=== PATIENT | female | born 1950 | race Caucasian/White ===

== ENCOUNTER 2020-01-31 09:05 | Inpatient (IN) ==
[2020-01-31] MEDS ORDERED: ASPIRIN CHEW 324 MG PO STA (09:36)
[2020-01-31] MEDS ORDERED: NITROGLYCERIN SL 0.4 MG/TAB TAB SL PRN (09:36)
--- NOTE | 2020-01-31 09:40 | Emergency Department Note ---
Impression & Plan Bilateral pulmonary embolism, Elevated troponin, Chest pain ED Provider Note NAME: GODWIN DOVE AGE: 69 SEX: F : 1950 ARRIVES VIA: Walk-In INFORMANT: Patient ED PROVIDER(S): Andreas Louise DO CHIEF COMPLAINT: Chest pain and shortness of breath HPI: Patient is a 69-year-old female who presents to the ER for shortness of breath with exertion which started over the past 24 hours. Is also associated with mild dull right-sided/midsternal chest pressure. No arm or jaw pain. She admits to clamminess. No nausea or vomiting. No dysuria urgency or frequency. Admits to smoking previously and now just vapes. She has a history of hyperlipidemia. She has had an unchanged dry cough for the past 3 weeks. No loss of taste or smell. No runny nose or sore throat. No exposure to anyone with Covid. No other exacerbating or remitting factors. Shortness of breath is not worse with lying flat. ROS: See above HPI for pertinent positives & negatives. A total of 10 systems reviewed and were otherwise negative. PAST MEDICAL HISTORY:See Below PAST SURGICAL HISTORY:See Below FAMILY HISTORY:See Below SOCIAL HISTORY:See Below HOME MEDICATIONS:See Below ALLERGIES:See Below VITALS:See Below PHYSICAL EXAMINATION: GENERAL: Sitting up in bed, alert, well appearing, well nourished, no distress, non-toxic EYE EXAM: normal conjunctiva. OROPHARYNX: no exudate, no erythema, lips, buccal mucosa, and tongue normal and mucous membranes are moist NECK: supple, no nuchal rigidity, no adenopathy, non-tender LUNGS: Clear to auscultation. Normal chest wall mechanics HEART: no murmurs, S1 normal and S2 normal ABDOMEN: abdomen soft, non-tender, normo-active bowel sounds, no masses, no rebound or guarding. BACK: Back is symmetrical on inspection and there is no deformity, no midline tenderness, no CVA tenderness. SKIN: no rashes and no bruising UPPER EXTREMITIES: upper extremities are grossly normal. LOWER EXTREMITIES: No pitting edema. Calves are equal bilateral NEURO EXAM: Normal sensorium, cranial nerves II-XII grossly intact, normal speech, no gross weakness of arms, no gross weakness of legs. MEDICAL DECISION MAKING: Patient is a 69-year-old female who presents the ER for dull chest pain and shortness of breath which has been present for the past 24 hours. IV was established blood work was obtained. Labs show a mild leukocytosis 11,000. No significant anemia. INR was unremarkable. D-dimer was was elevated at 9000. BMP with a slightly elevated chloride. LFTs bilirubin was unremarkable. Lipase was normal. Covid was negative. Chest x-ray was unremarkable. EKG did not show ischemic changes. CT angio of the chest after discussion with Dr. Crisostomo from cardiology showed extensive bilateral PEs which I do favor is the cause of the elevated troponin and D-dimer combination with EKG changes. She was placed on heparin drip and bolus. She had no bleeding risk factors which were discussed beforehand. Triage Nursing notes reviewed. Prior medical records reviewed Vital Signs: reviewed and remarkable for tachycardic Differential diagnosis: Differential diagnoses includes but is not limited to acute coronary syndrome, myocardial infarction, pericarditis, pulmonary embolus, aortic dissection, pneumonia, pneumothorax, musculoskeletal, shingles, esophageal. ER treatment provided: See below Diagnostics interpreted by me: ECG: Sinus rhythm rate of 97 T wave inversion in the inferior leads ST depressions in the inferior leads with nonspecific ST wave changes in the lateral leads QTC 444 EKG #2 Sinus rhythm rate of 91 Normal axis T wave inversion in the inferior leads T WI in V3 QTC 428 EKG #3 Sinus tachycardia rate of 100 T wave inversion in the inferior leads ST wave changes in the inferior leads T WI in V3 Nonspecific ST wave changes in the lateral leads Cardiac Monitoring: An order was placed for continuous cardiac monitoring. The monitor shows a rate of 98 with sinus rhythm. Laboratory studies: As stated above and show below. Imaging studies: CT of the chest shows extensive bilateral PEs Consultation(s): Discussed the hospitalist for further evaluation ED COURSE: Procedures: none Critical Care: I have personally spent 45 minutes of critical care time in the direct management of this patient. This includes bedside care, interpretation of diagnostic studies, and testing, discussion with consultants, patient, and family members, and other required patient management activities. This 45 minutes is in excess of all separately billable procedures. Past Med/Surg History Medical History (Updated 01/31/20 @ 16:07 by Andreas Louise DO) Anxiety CKD (chronic kidney disease) stage 3, GFR 30-59 ml/min HLD (hyperlipidemia) Surgical History (Updated 01/31/20 @ 12:43 by Mara Arevalo PA-C) History of colonoscopy History of tympanoplasty of left ear Family History (Updated 01/31/20 @ 12:44 by Mara Arevalo PA-C) Father Deep vein thrombosis Sister Deep vein thrombosis Mother Hypertension Social History (Updated 01/31/20 @ 14:18 by Mara Arevalo PA-C) Smoking Status: Former smoker Tobacco Type: E-cigarettes / Vaping packs per day: 0.5; Years Smoked: 30; Smoking End Date: 03/16/2013; Second Hand Exposure: No; Do You Dip or Chew Tobacco: No; Tobacco Cessation Education Requested by Patient: No Hx Alcohol Use: Yes Alcohol type: wine Alcohol type Comment: daily champagne. One glass. 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 Beliefs That Will Affect Care: None marital status: Current Living Situation: Spouse Other Information That Helps Us Care for You: No Feels Safe at Home: Yes Safety Concerns: Feels Safe At This Time Assistive Devices: None Allergies Allergies Allergy/AdvReac Type Severity Reaction Status Date / Time lidocaine AdvReac Severe Redness Unverified 01/31/20 11:48 and swelling of face Home Meds Home Medications Medication Instructions Recorded Confirmed Cbd Oil 50mg/Ml 50 mg SUBLINGUAL HS 01/31/20 01/31/20 s-adenosylmethionine [Fabricio-E] 400 mg PO HS 01/31/20 01/31/20 Results & Data (ED) Vital Signs Vital Signs - 24 hr 01/31/20 09:10 01/31/20 09:50 01/31/20 09:52 Pulse Rate 109 H 94 H 94 H Pulse Rate [Right Finger] Pulse Rate from SpO2 Sensor 95 H Respiratory Rate 20 11 L Respiratory Effort / Characteristics Short of Breath SOB on Exertion Respiratory Depth Blood Pressure 116/74 146/81 H Blood Pressure [Left Arm] Blood Pressure Mean 88 96 Blood Pressure Mean [Left Arm] Blood Pressure Position Sitting Pulse Oximetry 94 93 93 Oxygen Delivery Method Room Air Room Air Sepsis Recent Fever Within 48 Hours No Sepsis New/Unexplained Change in Mental Status No Sepsis Action Taken by Nursing No Action Required 01/31/20 09:58 01/31/20 10:00 01/31/20 10:16 Pulse Rate 103 H 97 H 92 H Pulse Rate [Right Finger] Pulse Rate from SpO2 Sensor 103 H 92 H Respiratory Rate 25 H 22 14 Respiratory Effort / Characteristics Respiratory Depth Blood Pressure 138/90 Blood Pressure [Left Arm] Blood Pressure Mean 112 Blood Pressure Mean [Left Arm] Blood Pressure Position Pulse Oximetry 93 94 Oxygen Delivery Method Sepsis Recent Fever Within 48 Hours Sepsis New/Unexplained Change in Mental Status Sepsis Action Taken by Nursing 01/31/20 10:17 01/31/20 10:23 01/31/20 10:25 Pulse Rate 99 H 95 H Pulse Rate [Right Finger] 90 93 H Pulse Rate from SpO2 Sensor 98 H 96 H Respiratory Rate 20 17 9 L Respiratory Effort / Characteristics Non-Labored Non-Labored Respiratory Depth Normal Normal Blood Pressure 102/92 108/83 Blood Pressure [Left Arm] 138/90 102/92 Blood Pressure Mean 96 97 Blood Pressure Mean [Left Arm] 106 95 Blood Pressure Position Pulse Oximetry 16 L 95 94 Oxygen Delivery Method Room Air Room Air Sepsis Recent Fever Within 48 Hours Sepsis New/Unexplained Change in Mental Status Sepsis Action Taken by Nursing 01/31/20 10:26 01/31/20 10:28 01/31/20 10:30 Pulse Rate 94 H 98 H Pulse Rate [Right Finger] 96 H Pulse Rate from SpO2 Sensor 94 H 98 H Respiratory Rate 10 L 12 16 Respiratory Effort / Characteristics Non-Labored Respiratory Depth Normal Blood Pressure 104/77 Blood Pressure [Left Arm] 108/83 Blood Pressure Mean 87 Blood Pressure Mean [Left Arm] 91 Blood Pressure Position Pulse Oximetry 94 95 93 Oxygen Delivery Method Room Air Sepsis Recent Fever Within 48 Hours Sepsis New/Unexplained Change in Mental Status Sepsis Action Taken by Nursing 01/31/20 10:31 01/31/20 11:00 01/31/20 11:25 Pulse Rate 96 H 94 H Pulse Rate [Right Finger] Pulse Rate from SpO2 Sensor 98 H 94 H Respiratory Rate 19 21 Respiratory Effort / Characteristics Respiratory Depth Blood Pressure 98/62 L 125/85 Blood Pressure [Left Arm] Blood Pressure Mean 67 94 Blood Pressure Mean [Left Arm] Blood Pressure Position Pulse Oximetry 93 93 98 Oxygen Delivery Method Room Air Sepsis Recent Fever Within 48 Hours Sepsis New/Unexplained Change in Mental Status Sepsis Action Taken by Nursing 01/31/20 11:32 01/31/20 12:02 01/31/20 12:03 Pulse Rate 106 H 100 H 103 H Pulse Rate [Right Finger] Pulse Rate from SpO2 Sensor 99 H 103 H Respiratory Rate 22 24 25 H Respiratory Effort / Characteristics Respiratory Depth Blood Pressure 157/92 H Blood Pressure [Left Arm] Blood Pressure Mean 133 Blood Pressure Mean [Left Arm] Blood Pressure Position Pulse Oximetry 94 93 Oxygen Delivery Method Sepsis Recent Fever Within 48 Hours Sepsis New/Unexplained Change in Mental Status Sepsis Action Taken by Nursing 01/31/20 12:30 Pulse Rate 92 H Pulse Rate [Right Finger] Pulse Rate from SpO2 Sensor 92 H Respiratory Rate 16 Respiratory Effort / Characteristics Respiratory Depth Blood Pressure 158/97 H Blood Pressure [Left Arm] Blood Pressure Mean 102 Blood Pressure Mean [Left Arm] Blood Pressure Position Pulse Oximetry 93 Oxygen Delivery Method Sepsis Recent Fever Within 48 Hours Sepsis New/Unexplained Change in Mental Status Sepsis Action Taken by Nursing Laboratory Data Result diagrams: 01/31/20 10:12 01/31/20 10:12 Lab Results 01/31/20 01/31/20 01/31/20 Range/Units 10:12 10:12 10:12 WBC 11.51 H (4.8-10.8) K/uL RBC 4.82 (4.2-5.4) M/uL Hgb 14.7 (12.0-16.0) g/dL Hct 44.4 (37-47) % MCV 92.1 (80-100) fL MCH 30.5 (25-34) pg MCHC 33.1 (32-36) g/dL RDW Std Deviation 43.6 (36.4-46.3) fL RDW Coeff of Stefanie 13.0 (11.5-14.5) % Plt Count 246 (130-400) K/uL MPV 10.0 (7.4-10.4) fL Immature Gran % (Auto) 0.3 % Neut % (Auto) 74.7 % Lymph % (Auto) 16.3 % Baca % (Auto) 7.4 % Eos % (Auto) 1.0 % Baso % (Auto) 0.3 % Neut # (Auto) 8.61 H (1.4-6.5) K/uL Lymph # (Auto) 1.88 (1.2-3.4) K/uL [place] # (Auto) 0.85 H (0.11-0.59) K/uL Eos # (Auto) 0.11 (0-0.5) K/uL Baso # (Auto) 0.03 (0-0.2) K/uL Immature Gran # (Auto) 0.03 H (0.00-0.02) K/uL PT 10.8 (9.0-12.0) Seconds INR 1.0 (0.9-1.1) APTT 26.5 (21.0-31.0) Seconds PTT Ratio 0.9 D-Dimer 9210 H* (0-500) ug/L FEU Sodium 140 (136-145) mmol/L Potassium 3.9 (3.5-5.1) mmol/L Chloride 109 H (98-107) mmol/L Carbon Dioxide 23 (21-32) mmol/L Anion Gap 7.0 (3-11) BUN 15 (7-18) mg/dl Creatinine 1.18 (0.6-1.2) mg/dl Est Cr Clr Drug Dosing 43.0 ml/min Est GFR ( Amer) 53.7 Est GFR (Non-Af Amer) 46.4 BUN/Creatinine Ratio 13.1 (10-20) Glucose 97 (70-99) mg/dl Calcium 9.1 (8.5-10.1) mg/dl Total Bilirubin 0.6 (0.2-1) mg/dl AST 18 (15-37) U/L ALT 27 (12-78) U/L Alkaline Phosphatase 75 (45-117) U/L Troponin I 0.446 H* (0-0.045) ng/ml Total Protein 8.1 (6.4-8.2) gm/dl Albumin 3.8 (3.4-5.0) gm/dl Globulin 4.3 H (2.5-4.0) gm/dl Albumin/Globulin Ratio 0.9 (0.9-2) Lipase 139 (73-393) U/L COVID-19 Eval Order 01/31/20 Range/Units 11:30 WBC (4.8-10.8) K/uL RBC (4.2-5.4) M/uL Hgb (12.0-16.0) g/dL Hct (37-47) % MCV (80-100) fL MCH (25-34) pg MCHC (32-36) g/dL RDW Std Deviation (36.4-46.3) fL RDW Coeff of Stefanie (11.5-14.5) % Plt Count (130-400) K/uL MPV (7.4-10.4) fL Immature Gran % (Auto) % Neut % (Auto) % Lymph % (Auto) % Baca % (Auto) % Eos % (Auto) % Baso % (Auto) % Neut # (Auto) (1.4-6.5) K/uL Lymph # (Auto) (1.2-3.4) K/uL [place] # (Auto) (0.11-0.59) K/uL Eos # (Auto) (0-0.5) K/uL Baso # (Auto) (0-0.2) K/uL Immature Gran # (Auto) (0.00-0.02) K/uL PT (9.0-12.0) Seconds INR (0.9-1.1) APTT (21.0-31.0) Seconds PTT Ratio D-Dimer (0-500) ug/L FEU Sodium (136-145) mmol/L Potassium (3.5-5.1) mmol/L Chloride (98-107) mmol/L Carbon Dioxide (21-32) mmol/L Anion Gap (3-11) BUN (7-18) mg/dl Creatinine (0.6-1.2) mg/dl Est Cr Clr Drug Dosing ml/min Est GFR ( Amer) Est GFR (Non-Af Amer) BUN/Creatinine Ratio (10-20) Glucose (70-99) mg/dl Calcium (8.5-10.1) mg/dl Total Bilirubin (0.2-1) mg/dl AST (15-37) U/L ALT (12-78) U/L Alkaline Phosphatase (45-117) U/L Troponin I (0-0.045) ng/ml Total Protein (6.4-8.2) gm/dl Albumin (3.4-5.0) gm/dl Globulin (2.5-4.0) gm/dl Albumin/Globulin Ratio (0.9-2) Lipase (73-393) U/L COVID-19 Eval Order Dup asRespPanOrdered Administered Medications Heparin Sodium/Dextrose (Heparin Sodium/Dextrose) 25,000 units in 500 mls @ 22 mls/hr IV .[id number] NOREEN; Protocol Stop: 03/01/20 12:29 Last Admin: 01/31/20 14:38 Dose: 1,100 units/hr, 22 mls/hr Documented by: [id number] Cosigned by: [id number] Discontinued Medications Aspirin (Aspirin Chew 324 Mg) 324 mg PO NOW STA Stop: 01/31/20 09:37 Last Admin: 01/31/20 10:19 Dose: 324 mg Documented by: [id number] Heparin Sodium (Porcine) (Heparin Sod (Porcine) 1000 Unit/Ml 10 Ml Vial) Confirm Administered Dose 10,000 units .ROUTE .STK-MED ONE Stop: 01/31/20 13:36 Last Admin: 01/31/20 14:39 Dose: 5,000 units Documented by: [id number] Cosigned by: [id number] Heparin Sodium/Dextrose (Heparin Iv Standard With Bolus) 1 ea IV NOW STA; Protocol Stop: 01/31/20 12:23 Last Admin: 01/31/20 14:39 Dose: 1 ea Documented by: [id number] Ioversol (Optiray 320 125ml) 119 ml IV ONCE ONE Stop: 01/31/20 11:59 Last Admin: 01/31/20 11:58 Dose: 119 ml Documented by: [id number] Nitroglycerin (Nitroglycerin Sl 0.4 Mg/Tab Tab) 0.4 mg SL PRN PRN PRN Reason: Allergic Symptoms Stop: 03/01/20 09:35 Last Admin: 01/31/20 10:20 Dose: 0.4 mg Documented by: [id number] Discharge Plan Visit Data Chief Complaint: Cardiac Assessment Stated Complaint: DIFFICULTY BREATHING, MILD CHEST DISCOMFORT ED Provider: Andreas Louise Discharge Problem: Bilateral pulmonary embolism, Elevated troponin, Chest pain Patient Disposition: Admitted As Inpatient Discharge Instructions Interventions: ED Discharge Assessment Last Done: 01/31/20 15:00 Discharge Problem: Chest pain Qualifiers: Chest pain type: unspecified Qualified Code(s): R07.9 - Chest pain, unspecified
--- NOTE | 2020-01-31 09:56 | XRay Report ---
SINGLE VIEW CHEST CLINICAL HISTORY: Atypical chest pain. FINDINGS: An AP, portable, upright chest radiograph is obtained. No prior studies are available for c omparison at the time of dictation. The examination is degraded by portable technique and apical lord otic positioning. The heart is top normal for projection noting atherosclerotic calcification of the thoracic aorta. The pulmonary vasculature is noncongested. The lungs and pleural spaces are clear. No pneumothorax is seen. The skeletal structures are osteopenic. The bony thorax is grossly intact. Art hritic change is noted in the right shoulder. IMPRESSION: No active disease in the chest. ACT 112: Negative or not required by law. Electronically signed by: Eliseo Sifuentes M.D. 01/31/2020 9:54 AM
[2020-01-31 10:31] LABS: Basophils # (auto) 0.03 K/uL (0-0.2); Basophils % (auto) 0.3 %; Eosinophils # (auto) 0.11 K/uL (0-0.5); Hematocrit (blood only) 44.4 % (37-47); Hemoglobin 14.7 g/dL (12.0-16.0); Immature Granulocytes # (auto) 0.03 K/uL (0.00-0.02); Immature Granulocytes % (auto) 0.3 %; Lymphocytes # (auto) 1.88 K/uL (1.2-3.4); Lymphocytes % (auto) 16.3 %; Mean Corpuscular Hemoglobin 30.5 pg (25-34); Mean Corpuscular Hgb Conc 33.1 g/dL (32-36); Mean Corpuscular Volume 92.1 fL (80-100); Monocytes # (auto) 0.85 K/uL (0.11-0.59); Monocytes % (auto) 7.4 %; Neutrophils # (auto) 8.61 K/uL (1.4-6.5); Neutrophils % (auto) 74.7 %; Platelet Count 246 K/uL (130-400); RDW Standard Deviation 43.6 fL (36.4-46.3); Red Blood Count 4.82 M/uL (4.2-5.4); White Blood Count 11.51 K/uL (4.8-10.8)
[2020-01-31 10:47] LABS: Albumin Level 3.8 gm/dl (3.4-5.0); BUN Creatinine Ratio 13.1 (10-20); Calcium 9.1 mg/dl (8.5-10.1); Est GFR (African American) 53.7; Est GFR (Non-African American) 46.4; Potassium 3.9 mmol/L (3.5-5.1)
[2020-01-31 10:58] LABS: Partial Thromboplastin Ratio 0.9; Partial Thromboplastin Time 26.5 Seconds (21.0-31.0); Prothrombin Time 10.8 Seconds (9.0-12.0)
[2020-01-31 11:01] LABS: Albumin Globulin Ratio 0.9 (0.9-2); Bilirubin,Total 0.6 mg/dl (0.2-1); Globulin 4.3 gm/dl (2.5-4.0); Total Protein 8.1 gm/dl (6.4-8.2); Troponin I 0.446 ng/ml (0-0.045)
[2020-01-31 11:07] LABS: D Dimer 9210 ug/L FEU (0-500)
[2020-01-31] MEDS ORDERED: Heparin IV Low Dose WITH Bolus IV STA (11:24)
[2020-01-31] MEDS ORDERED: HEPARIN SODIUM/DEXTROSE 25,000 UNITS/500 ML BAG IV SCH (11:30)
[2020-01-31] MEDS ORDERED: OPTIRAY 320 125ml IV ONE (11:58)
--- NOTE | 2020-01-31 12:12 | CT Scan Report ---
CT ANGIOGRAM OF THE CHEST CLINICAL HISTORY: Dyspnea. Atypical chest pain. Elevated d-dimer. COMPARISON STUDY: Chest x-ray dated 01/31/2020. TECHNIQUE: Following the IV administration of 119 cc of Optiray 320, CT angiogram of the chest was pe rformed from the upper abdomen to the thoracic inlet utilizing the pulmonary embolus protocol. Images are reviewed in the axial, sagittal, and coronal planes. 3-D MIPS images are created and assessed. I V contrast was administered without complication. A dose lowering technique was utilized adhering to the principles of ALARA. CT DOSE: 420.40 mGycm FINDINGS: Thyroid: Imaged portions of the thyroid gland are normal in size and attenuation. Thoracic aorta: The thoracic aorta is normal in caliber and demonstrates standard 3-vessel arch anato my. No dissection is seen. Pulmonary vasculature: The pulmonary trunk is normal in caliber. There is pulmonary embolus within th e right lower lobe pulmonary artery. This extends peripherally into segmental and subsegmental branch es. Segmental and subsegmental pulmonary emboli are also seen within branches of the right upper and right lower lobe pulmonary arteries. There is thrombus within the distal left main pulmonary artery. This extends into the left upper and left lower lobar pulmonary arteries involving segmental and subs egmental branches. Heart: The heart is mildly enlarged and without pericardial effusion. Lungs and pleural spaces: There is no airspace consolidation or pleural effusion. Atelectasis is note d at the lung bases. The trachea and central airways are clear. Mild diffuse peribronchial thickening is observed. Mediastinum: There is no mediastinal lymphadenopathy. Lucita: Clear. Axillae: There is no axillary lymphadenopathy. Upper abdomen: There is a small hiatal hernia. An 11 mm complex/hyperdense cyst arises from the upper pole of left kidney. Skeletal structures: The skeletal structures are osteopenic. No lytic or blastic bony lesions are see n. IMPRESSION: 1. Fairly extensive bilateral pulmonary emboli as above. 2. Mild cardiac enlargement. 3. There is no airspace consolidation or pleural effusion. 4. Mild diffuse peribronchial thickening suggests bronchitis/reactive airway disease. Clinical correl ation will be required. ACT 112: Negative or not required by law. Electronically signed by: Eliseo Sifuentes M.D. 01/31/2020 12:10 PM
--- NOTE | 2020-01-31 12:51 | History & Physical Report ---
Date of Service January 31, 2020 Assessment & Plan (1) Bilateral pulmonary embolism: (2) Elevated troponin: This is a 69-year-old female who has significant past medical history of anxiety, hyperlipidemia, CKD stage III, family history of venous thromboembolism who presents to ED secondary to worsening shortness of breath x24 hours. CTA revealed fairly extensive bilateral pulmonary emboli. Elevated troponin at 0.446. Currently she is not hypoxic. IV heparin bolus/gtt initiated in ED. admit to PCU continue IV heparin obtain echocardiogram eval for R heart strain b/l venous duplex hypercoag panel, + FH of factor 5 deficiency cycle troponins consult cardiology -discussed with Dr. Edmondson and will initiate metoprolol 12.5 mg twice daily for A. fib prophylaxis (3) CKD (chronic kidney disease) stage 3, GFR 30-59 ml/min: baseline cr 1.1 bun/cr stable 15/1.18 monitor (4) HLD (hyperlipidemia): diet controlled has had elevated total cholesterol and LDL for several years, never on statin given elevated trop, obtain fasting lipid panel DVT ppx: IV heparin Disposition: admit to tele Follow up: PCP Dr. Orta upon discharge Pt was seen and examined in collaboration with Dr. Huitron, please see addendum FULL CODE History of Present Illness Chief Complaint: Worsening shortness of breath x24 hours. Primary Care Provider: Toyin Orta, This is a 69-year-old female who has significant past medical history of anxiety, hyperlipidemia, CKD stage III, family history of venous thromboembolism who presents to ED secondary to worsening shortness of breath x24 hours. Shortness of breath is associated with midsternal and right-sided chest pain. Pain is described as dull, no radiation to arm or jaw, slightly worse with deep breathing, nothing makes better, denies orthopnea or PND, has never experienced in the past. Further complains of dry cough for approximately 3 weeks. Admits to increased fatigue. When she does limited activity she gets SOB. Yesterday with ambulation she felt lightheaded like she could pass out, but resolved with rest. She denies f/c/s, sob at rest, n/v/d, change in bowel or urinary habits. She denies hemoptysis or wheezing. Father and numerous relatives + factor 5 leiden deficiency. She never got tested because she was asymptomatic. If she becamse symptomatic she would get tested. No prior hx of DVT. Former smoker. She does currently vape, but nicotine free. Denies hormone replacement therapy and no recent surgery. No current malignancy. In ED patient made hemodynamically stable. She was saturating well on room air. Lab work notable for leukocytosis 11.51k, H&H 14.7 and 44.4, platelet 246, BUN 15, creatinine 1.18, GFR 46.4, D-dimer 9210, troponin 0.446. Chest x-ray negative for acute cardiopulmonary abnormality. Chest CTA: Fairly extensive bilateral pulmonary emboli, mild cardiac enlargement. No airspace consolidation or pleural effusion. Mild diffuse peribronchial thickening suggesting a bronchitis reactive airway disease. She was started on IV heparin bolus and drip. Allergies Allergy/AdvReac Type Severity Reaction Status Date / Time lidocaine AdvReac Severe Redness Unverified 01/31/20 11:48 and swelling of face Home Medications Medication Instructions Recorded Confirmed Type Cbd Oil 50mg/Ml 50 mg SUBLINGUAL HS 01/31/20 01/31/20 History s-adenosylmethionine [Fabricio-E] 400 mg PO HS 01/31/20 01/31/20 History Past Med/Surg History Medical History Anxiety CKD (chronic kidney disease) stage 3, GFR 30-59 ml/min HLD (hyperlipidemia) Surgical History History of colonoscopy History of tympanoplasty of left ear Family History Father Deep vein thrombosis Sister Deep vein thrombosis Mother Hypertension Social History Smoking Status: Former smoker Tobacco Type: E-cigarettes / Vaping packs per day: 0.5; Years Smoked: 30; Smoking End Date: 03/16/2013; Second Hand Exposure: No; Do You Dip or Chew Tobacco: No; Tobacco Cessation Education Requested by Patient: No Hx Alcohol Use: Yes Alcohol type: wine Alcohol type Comment: daily champagne. One glass. Hx Substance Use: No Preferred Language: Canadian Guest Experience Specialist Required: No Beliefs That Will Affect Care: None marital status: Current Living Situation: Spouse Other Information That Helps Us Care for You: No Feels Safe at Home: Yes Safety Concerns: Feels Safe At This Time Assistive Devices: None Review of Systems Review of Systems: All systems reviewed & are unremarkable except as noted in HPI & below Physical Exam Physical Exam: Constitutional: WD/WN, vitals as above, NAD, sitting up in bed, pleasant, conversing easily Head: Normocephalic, Atraumatic Eyes: PERRL, conjunctivae normal, anicteric sclerae ENMT: external ear and nose normal, oropharynx normal Neck: trachea midline, no thyromegaly normal visual inspection Respiratory: normal respiratory effort, lungs clear to auscultation, no wheeze, rales, rhonchi. Normal insp/exp effort, no accessory muscle use Cardiovascular: RRR, no murmur, no edema Vessels: no JVD or carotid bruit Chest: normal inspection of chest Abdomen: normal bowel sounds, soft, nontender, no hepatosplenomegaly Musculoskeletal: no cyanosis or clubbing, extremities motor strength 5/5 Skin: no rashes, warm and dry normal turgor Neurologic: PERRL, EOMI, accommodation nl, no face palsy, no dysarthria CN's II-XI intact bilaterally and moves all extremities Psychiatric: A+Ox3, euthymic affect Lymphatic: no cervical or axillary lymphadenopathy : deferred Results & Data Results & Data ([facility]) Vital Signs (Past 12 Hours) Vital Signs Pulse Pulse Resp BP BP Pulse Ox 01/31/20 11:25 98 01/31/20 10:26 96 H 10 L 108/83 94 01/31/20 10:23 93 H 10 L 102/92 95 01/31/20 10:17 90 20 138/90 16 L 01/31/20 09:50 94 H 93 01/31/20 09:10 109 H 20 116/74 94 Laboratory Results Short CBC 01/31/20 Range/Units 10:12 WBC 11.51 H (4.8-10.8) K/uL Hgb 14.7 (12.0-16.0) g/dL Hct 44.4 (37-47) % Plt Count 246 (130-400) K/uL BMP 01/31/20 10:12 Sodium 140 Potassium 3.9 Chloride 109 H Carbon Dioxide 23 BUN 15 Creatinine 1.18 Glucose 97 Calcium 9.1 Cardiac Enzymes 01/31/20 Range/Units 10:12 Troponin I 0.446 H* (0-0.045) ng/ml Liver Function 01/31/20 Range/Units 10:12 Total Bilirubin 0.6 (0.2-1) mg/dl AST 18 (15-37) U/L ALT 27 (12-78) U/L Alkaline Phosphatase 75 (45-117) U/L Albumin 3.8 (3.4-5.0) gm/dl Diagnostic Findings Chest CTA: IMPRESSION: 1. Fairly extensive bilateral pulmonary emboli as above. 2. Mild cardiac enlargement. 3. There is no airspace consolidation or pleural effusion. 4. Mild diffuse peribronchial thickening suggests bronchitis/reactive airway disease. Clinical correlation will be required. CXR: IMPRESSION: No active disease in the chest. Medications Administered Nitroglycerin (Nitroglycerin Sl 0.4 Mg/Tab Tab) 0.4 mg SL PRN PRN PRN Reason: Allergic Symptoms Stop: 03/01/20 09:35 Last Admin: 01/31/20 10:20 Dose: 0.4 mg Documented by: [id number] Discontinued Medications Aspirin (Aspirin Chew 324 Mg) 324 mg PO NOW STA Stop: 01/31/20 09:37 Last Admin: 01/31/20 10:19 Dose: 324 mg Documented by: [id number] Ioversol (Optiray 320 125ml) 119 ml IV ONCE ONE Stop: 01/31/20 11:59 Last Admin: 01/31/20 11:58 Dose: 119 ml Documented by: [id number] ECG Rate (beats per minute): 100 Rhythm: sinus tachycardia Findings: + RBBB Additional Comments: possible left atrial enlargement Code Status & VTE Plan Code Status Full Code VTE Prophylaxis Plan Reason for no VTE drug order: Contraindicated Reason for no VTE mechanical prophylaxis: Treatment not indicated Supervising Physician Co-Signing Physician Notes Attending addendum: pt seen and examined , care co-ordinated with Mara BURNS this is a 69 yo F admitted with exertional sob for past few day no cough , no fever or chills CTA of chest shows : bilateral extensive PE pt started on IV heparin wt based protocol family hx of hyperocagulable status : Factor V Leiden no personal hx of DVT/PE in past no recent travel , no recent hip or knee surgery pt is fairly active at baseline unprovoked extensive bilateral PE ordered labs for hypercoagulable work up Iv heparin wt based protocol can be transitioned to DOAC's ( pt has acceptable cr clearance ) ECHO ; shows evidence of pulm HTN with mild /moderate RV strain Elevation of troponin noted -due to cardiac strain with bilateral PE serial cardiac markers ordered pt denies of any chest pain , no SOB at rest monitor in tele please refer to further documentation by Mara Arevalo PA-C for discussion of other chronic issues Samantha Huitron MD
[2020-01-31] MEDS ORDERED: HEPARIN SOD (PORCINE) 1000 UNIT/ML 10 ML VIAL ONE (13:35)
[2020-01-31] MEDS: HEPARIN SODIUM/DEXTROSE 25,000 UNITS/500 ML BAG IV SCH (14:38)
[2020-01-31] MEDS ORDERED: POLYETHYLENE (MIRALAX) 17 GM PACK PO PRN (15:35)
[2020-01-31] MEDS ORDERED: ONDANSETRON INJ 2 MG/ML 2 ML VIAL IV PRN (15:35)
[2020-01-31] MEDS ORDERED: ALUMINUM/MAGNESIUM SUSP 30 ML UDC PO PRN (15:35)
[2020-01-31] MEDS ORDERED: ACETAMINOPHEN 325 MG TAB PO PRN (15:35)
[2020-01-31] MEDS ORDERED: MAGNESIUM HYDROXIDE SUSP 30 ML UDC PO PRN (15:35)
--- NOTE | 2020-01-31 16:55 | Electrocardiogram Report ---
Test Reason : Blood Pressure : / mmHG Vent. Rate : 097 BPM Atrial Rate : 097 BPM P-R Int : 186 ms QRS Dur : 080 ms QT Int : 350 ms P-R-T Axes : 073 037 005 degrees QTc Int : 444 ms Normal sinus rhythm Nonspecific ST and T wave abnormality Abnormal ECG No previous ECGs available Confirmed by Juan Linton ([id number]) on 01/31/2020 4:55:05 PM Referred By: REFERRED SELF Confirmed By:Juan Linton
--- NOTE | 2020-01-31 16:58 | Electrocardiogram Report ---
Test Reason : Blood Pressure : / mmHG Vent. Rate : 091 BPM Atrial Rate : 091 BPM P-R Int : 162 ms QRS Dur : 080 ms QT Int : 348 ms P-R-T Axes : 068 027 013 degrees QTc Int : 428 ms Normal sinus rhythm Nonspecific T wave abnormality Abnormal ECG When compared with ECG of 31-JAN-2020 09:50, (unconfirmed) No significant change was found Confirmed by Juan Linton ([id number]) on 01/31/2020 4:58:36 PM Referred By: REFERRED SELF Confirmed By:Juan Linton
--- NOTE | 2020-01-31 16:59 | Electrocardiogram Report ---
Test Reason : Blood Pressure : / mmHG Vent. Rate : 100 BPM Atrial Rate : 100 BPM P-R Int : 200 ms QRS Dur : 080 ms QT Int : 344 ms P-R-T Axes : 065 046 004 degrees QTc Int : 443 ms Normal sinus rhythm Possible Left atrial enlargement Nonspecific ST and T wave abnormality Abnormal ECG When compared with ECG of 31-JAN-2020 11:23, (unconfirmed) No significant change was found Confirmed by Juan Linton ([id number]) on 01/31/2020 4:58:58 PM Referred By: REFERRED SELF Confirmed By:Juan Linton
--- NOTE | 2020-01-31 18:01 | Cardiology Consultation ---
Date of Consultation January 31, 2020 Assessment & Plan (1) Bilateral pulmonary embolism: (2) Elevated troponin: Patient and family history of venous thromboembolic event in her father, and history of Factor V Leiden mutation and a niece and 2 sisters presents with bilateral pulmonary embolism, with associated chest discomfort, mostly pleuritic right-sided chest discomfort, profound shortness of breath with exertion, and near syncope. Blood pressure is stable. Troponin I minimally elevated at 0.446 and 1.57 NG per mL, with follow-up echocardiogram revealing normal left ventricular wall motion and normal LVEF, and endings of mild right ventricular dilatation and mild right ventricular hypokinesis, with mild pulmonary hypertension. I think her troponin elevation is well explained by the CT findings, and echocardiogram findings, and is likely due to right ventricular strain in the absence of hypoxia or hypotension. Ongoing anticoagulation with heparin infusion is recommended. Given the significant thrombus burden, I would recommend that unfractioned heparin is the anticoagulant of choice at least initially. Will reassess the most ideal oral agent, perhaps Eliquis, as her hospital stay progresses. History of Present Illness Attending Physician: Samantha Huitron MD History of Present Illness Ting Donovan is a 69 year old female seen in cardiology consultation per the request of Panfilo Hodges PA-C and Dr Huitron for the evaluation of chest discomfort and elevated troponin I. Patient presented this morning with chest discomfort. Her initial EKG revealed no significant ST changes with exception of T wave inversion in lead III and V3. Troponin was minimally elevated. D-dimer was elevated.Dr Louise of the emergency department to contact me by pager this morning to discuss her case, and given the elevated D-dimer, I recommended proceeding with a CT angiogram of the chest. CT angiogram of the chest revealed pulmonary embolus within the right lower lobe pulmonary artery that extends peripherally into the segmental and subsegmental branches. Segmental and subsegmental pulmonary embolism also noted within the branches of the right upper and right lower pulmonary arteries. Thrombus was noted within the distal left main pulmonary artery. This extends into the left upper and left lower lobar pulmonary arteries per the radiology report. The patient describes that her symptoms started yesterday. She became more concerned when her symptoms progressed today, and also she had a momentary episode where she felt like she was going to pass out. Currently she is in the PCU, she is comfortable, and is eating her evening meal. Telemetry reveals sinus rhythm in the range of 70 to 80 bpm with occasional PACs. Blood pressure stable with most recent reading of 130/77. Unfractioned heparin is infusing. Family History: Patient notes remote history of DVT in her father 25 years ago. She has a niece and 2 sisters who tested positive for the Factor V Leiden mutation. The patient was never tested. She notes a car trip to [place] about a month ago, no other stasis risk factors. Allergies Allergy/AdvReac Type Severity Reaction Status Date / Time lidocaine AdvReac Severe Redness Unverified 01/31/20 11:48 and swelling of face Home Medications Medication Instructions Recorded Confirmed Type Cbd Oil 50mg/Ml 50 mg SUBLINGUAL HS 01/31/20 01/31/20 History s-adenosylmethionine [Fabricio-E] 400 mg PO HS 01/31/20 01/31/20 History Patient History Medical History Anxiety CKD (chronic kidney disease) stage 3, GFR 30-59 ml/min HLD (hyperlipidemia) Surgical History History of colonoscopy History of tympanoplasty of left ear Family History Father Deep vein thrombosis Sister Deep vein thrombosis Mother Hypertension Social History Smoking Status: Former smoker Tobacco Type: E-cigarettes / Vaping packs per day: 0.5; Years Smoked: 30; Smoking End Date: 03/16/2013; Second Hand Exposure: No; Do You Dip or Chew Tobacco: No; Tobacco Cessation Education Requested by Patient: No Hx Alcohol Use: Yes Alcohol type: wine Alcohol type Comment: daily champagne. One glass. Hx Substance Use: No Preferred Language: Albanian Biological Technician Required: No Beliefs That Will Affect Care: None marital status: Current Living Situation: Spouse Other Information That Helps Us Care for You: No Feels Safe at Home: Yes Safety Concerns: Feels Safe At This Time Assistive Devices: None Review of Systems Review of Systems: All systems reviewed & are unremarkable except as noted in HPI & below Physical Exam Physical Exam: Temp Pulse Resp BP Pulse Ox 36.5 C 88 18 130/77 95 01/31/20 15:43 01/31/20 15:43 01/31/20 15:43 01/31/20 15:43 01/31/20 15:43 Constitutional: WD/WN, vitals as above Respiratory: normal respiratory effort, lungs clear to auscultation Cardiovascular: RRR, no murmur, no edema Gastrointestinal (Abdomen): normal bowel sounds, soft, nontender, no hepatosplenomegaly Neurologic: PERRL, EOMI, accommodation nl, no face palsy, no dysarthria Results & Data ([facility]) Vital Signs (Past 12 Hours) Vital Signs Temp Pulse Pulse Resp BP BP Pulse Ox 01/31/20 15:43 36.5 C 88 18 130/77 95 01/31/20 14:31 86 12 01/31/20 14:30 85 16 159/93 H 01/31/20 14:00 90 22 143/90 H 01/31/20 13:42 98 H 20 158/103 H 96 01/31/20 13:30 93 H 17 149/105 H 94 01/31/20 13:11 99 H 22 01/31/20 12:30 92 H 16 158/97 H 93 01/31/20 12:03 103 H 25 H 157/92 H 93 01/31/20 12:02 100 H 24 94 01/31/20 11:32 106 H 22 01/31/20 11:25 98 01/31/20 11:00 94 H 21 125/85 93 01/31/20 10:31 96 H 19 98/62 L 93 01/31/20 10:30 98 H 16 93 01/31/20 10:28 94 H 12 104/77 95 01/31/20 10:26 96 H 10 L 108/83 94 01/31/20 10:25 95 H 9 L 108/83 94 01/31/20 10:23 99 H 93 H 17 102/92 102/92 95 01/31/20 10:17 90 20 138/90 16 L 01/31/20 10:16 92 H 14 138/90 94 01/31/20 10:00 97 H 22 01/31/20 09:58 103 H 25 H 93 01/31/20 09:52 94 H 11 L 146/81 H 93 01/31/20 09:50 94 H 93 01/31/20 09:10 109 H 20 116/74 94 Laboratory Results Cardiac Enzymes 01/31/20 01/31/20 Range/Units 10:12 15:31 AST 18 (15-37) U/L Troponin I 0.446 H* 1.570 H* (0-0.045) ng/ml Coagulation 01/31/20 Range/Units 10:12 PT 10.8 (9.0-12.0) Seconds APTT 26.5 (21.0-31.0) Seconds CBC 01/31/20 Range/Units 10:12 WBC 11.51 H (4.8-10.8) K/uL RBC 4.82 (4.2-5.4) M/uL Hgb 14.7 (12.0-16.0) g/dL Hct 44.4 (37-47) % Plt Count 246 (130-400) K/uL Neut # (Auto) 8.61 H (1.4-6.5) K/uL Lymph # (Auto) 1.88 (1.2-3.4) K/uL Story # (Auto) 0.85 H (0.11-0.59) K/uL Eos # (Auto) 0.11 (0-0.5) K/uL Baso # (Auto) 0.03 (0-0.2) K/uL Comprehensive Metabolic Panel 01/31/20 Range/Units 10:12 Sodium 140 (136-145) mmol/L Potassium 3.9 (3.5-5.1) mmol/L Chloride 109 H (98-107) mmol/L Carbon Dioxide 23 (21-32) mmol/L BUN 15 (7-18) mg/dl Creatinine 1.18 (0.6-1.2) mg/dl Glucose 97 (70-99) mg/dl Calcium 9.1 (8.5-10.1) mg/dl AST 18 (15-37) U/L ALT 27 (12-78) U/L Alkaline Phosphatase 75 (45-117) U/L Total Protein 8.1 (6.4-8.2) gm/dl Albumin 3.8 (3.4-5.0) gm/dl Intake and Output 01/31/20 01/31/20 01/31/20 06:59 14:59 22:59 Other: Weight 70.2 kg 68.8 kg Weight Measurement Method Chair Scale Built in [facility] Patient Weight 02/01/20 06:59 Weight 68.8 kg
[2020-01-31 19:14] LABS: Partial Thromboplastin Ratio > 5.0
[2020-01-31 19:26] LABS: Partial Thromboplastin Time > 139.0 Seconds (21.0-31.0)
--- NOTE | 2020-01-31 21:00 | Ultrasound Report ---
BILATERAL LOWER EXTREMITY VENOUS DOPPLER HISTORY: Acute pain and swelling of the lower legs eval for dvt COMPARISON STUDY: CTA chest of same day FINDINGS: Occlusive deep venous thrombosis noted within the distal popliteal vein extending into one of the paired posterior tibial veins. Otherwise, there is normal compressibility, flow, and augmentat ion within the remaining bilateral lower extremity deep venous structures. Right-sided Schrader's cyst, 3.0 x 1.1 x 1.4 cm. IMPRESSION: 1. Occlusive deep venous thrombus of the left lower extremity as above. 2. No sonographic evidence of right lower extremity deep venous thrombosis. ACT 112: Negative or not required by law. Electronically signed by: Iggy Bellamy M.D. 01/31/2020 8:59 PM
[2020-01-31] MEDS: METOPROLOL TARTRATE 25 MG TAB PO SCH (21:40)
[2020-01-31] MEDS: ZOLPIDEM TARTRATE 5 MG TAB PO PRN (22:03)
[2020-02-01 04:13] LABS: Hematocrit (blood only) 43.4 % (37-47); Hemoglobin 14.4 g/dL (12.0-16.0); Mean Corpuscular Hemoglobin 30.4 pg (25-34); Mean Corpuscular Hgb Conc 33.2 g/dL (32-36); Mean Corpuscular Volume 91.8 fL (80-100); Mean Platelet Volume 10.2 fL (7.4-10.4); Platelet Count 240 K/uL (130-400); RDW Coefficient of Variation 13.1 % (11.5-14.5); RDW Standard Deviation 43.6 fL (36.4-46.3); Red Blood Count 4.73 M/uL (4.2-5.4); White Blood Count 10.62 K/uL (4.8-10.8)
[2020-02-01 04:35] LABS: Partial Thromboplastin Ratio 2.8
[2020-02-01 04:36] LABS: Albumin Level 3.2 gm/dl (3.4-5.0); BUN Creatinine Ratio 16.4 (10-20); Calcium 8.4 mg/dl (8.5-10.1); Creatinine Clr Calc Pharmacy 49.3 ml/min; Est GFR (African American) 64.1; Est GFR (Non-African American) 55.3; Magnesium 2.5 mg/dl (1.8-2.4)
[2020-02-01 04:39] LABS: Albumin Globulin Ratio 0.8 (0.9-2); Bilirubin,Total 0.7 mg/dl (0.2-1); Globulin 4.2 gm/dl (2.5-4.0); Total Protein 7.4 gm/dl (6.4-8.2)
[2020-02-01] MEDS: METOPROLOL TARTRATE 25 MG TAB PO SCH ×2 (09:42→21:19)
--- NOTE | 2020-02-01 10:59 | Cardiology Progress Note ---
Date of Service February 01, 2020 Assessment & Plan (1) Bilateral pulmonary embolism: 69-year-old female with a family history of inherited hypercoagulable state (confirmed Factor V Leiden mutation and at least 2 family members) presents with unprovoked bilateral pulmonary embolism with large thrombus burden noted on CT. Based on elevation of troponin I, peaked at 1.5, down to 0.955 NG per mL this morning, mild right ventricular hypokinesis, and mild pulmonary hypertension on echocardiogram, I would classify this as being a submassive pulmonary embolism with hemodynamic stability. Blood pressures remained stable. Mild repolarization changes noted on EKG, which is likely due to myocardial strain related to the pulmonary embolism. No indication for systemic or catheter-based thrombolytic therapy at this time. Continue unfractionated heparin infusion. Would consider transitioning her to a direct oral anticoagulant agent if feasible from a cost perspective. The dose of Eliquis would be 10 mg twice daily x7 days, then 5 mg twice daily thereafter. Hypercoagulable work-up in progress. If inherited hypercoagulability confirmed, will likely need lifelong anticoagulation. Admission and Anticipated Discharge Date Admission Date: January 31, 2020 Subjective Patient seen in cardiology follow up of chief complain of chest pain, shortness of breath, and near syncope. She denies any chest discomfort or shortness of breath at present, although she notes that this may be because she has been sedentary in bed with exception to walking to the commode. No recurrent near syncope. Telemetry reveals sinus rhythm in the 60s to 70s with isolated PVCs. Review of Systems Review of Systems: All systems reviewed & are unremarkable except as noted in HPI & below Physical Exam Physical Exam: Temp Pulse Resp BP Pulse Ox 36.5 C 85 18 122/80 96 02/01/20 11:34 02/01/20 11:34 02/01/20 11:34 02/01/20 11:34 02/01/20 11:34 Constitutional: WD/WN, vitals as above Respiratory: normal respiratory effort, lungs clear to auscultation Cardiovascular: RRR, no murmur, no edema Gastrointestinal (Abdomen): normal bowel sounds, soft, nontender, no hepatosplenomegaly Neurologic: PERRL, EOMI, accommodation nl, no face palsy, no dysarthria Results & Data ([facility]) Vital Signs (Past 12 Hours) Vital Signs Temp Pulse Pulse Resp BP Pulse Ox 02/01/20 10:02 67 02/01/20 07:13 36.4 C L 73 18 106/76 93 02/01/20 04:05 36.4 C L 73 19 110/69 94 01/31/20 23:06 36.6 C 68 18 105/56 L 96 Laboratory Results Cardiac Enzymes 01/31/20 01/31/20 01/31/20 Range/Units 10:12 15:31 21:11 AST (15-37) U/L Troponin I 0.446 H* 1.570 H* 0.955 H* (0-0.045) ng/ml 02/01/20 Range/Units 03:42 AST 17 (15-37) U/L Troponin I (0-0.045) ng/ml Coagulation 01/31/20 01/31/20 02/01/20 Range/Units 10:12 18:33 03:42 PT 10.8 (9.0-12.0) Seconds APTT 26.5 > 139.0 H* 78.0 H* (21.0-31.0) Seconds Lipids 02/01/20 Range/Units 03:42 Triglycerides 74 (0-150) mg/dl Cholesterol 214 H (0-200) mg/dl HDL Cholesterol 62 mg/dl Cholesterol/HDL Ratio 4 CBC 02/01/20 Range/Units 03:42 WBC 10.62 (4.8-10.8) K/uL RBC 4.73 (4.2-5.4) M/uL Hgb 14.4 (12.0-16.0) g/dL Hct 43.4 (37-47) % Plt Count 240 (130-400) K/uL Comprehensive Metabolic Panel 01/31/20 02/01/20 Range/Units 10:12 03:42 Sodium 138 (136-145) mmol/L Potassium 4.0 (3.5-5.1) mmol/L Chloride 109 H (98-107) mmol/L Carbon Dioxide 24 (21-32) mmol/L BUN 17 (7-18) mg/dl Creatinine 1.02 (0.6-1.2) mg/dl Glucose 107 H (70-99) mg/dl Calcium 8.4 L (8.5-10.1) mg/dl AST 17 (15-37) U/L ALT 24 (12-78) U/L Alkaline Phosphatase 75 67 (45-117) U/L Total Protein 8.1 7.4 (6.4-8.2) gm/dl Albumin 3.2 L (3.4-5.0) gm/dl Intake and Output 01/31/20 02/01/20 02/01/20 22:59 06:59 14:59 Intake Total 467.8 / 742.183 274.383 / 742.183 Balance 467.8 / 742.183 274.383 / 742.183 Intake: IV 107.8 / 232.183 124.383 / 232.183 HEPARIN SODIUM/DEXTROSE 25,000 107.8 / 232.183 124.383 / 232.183 units In 500 ml @ 850 UNITS/HR 17 mls/hr IV .Q24H NOREEN Rx#: [id number] Oral 360 / 510 150 / 510 Other: # Unmeasured Voids 2 1 Weight 68.8 kg 69.2 kg Weight Measurement Method Built in Bedscale Standing Scale Diagnostic Findings EKG 02/01/20 tracing reviewed independently: SR with occasional PVCs, inferior , lateral T wave inversions.
--- NOTE | 2020-02-01 11:04 | Hospitalist Progress Note ---
Date of Service February 01, 2020 Assessment & Plan (1) Bilateral pulmonary embolism: (2) Elevated troponin: Left Lower Extremity DVT per admitting service notes: This is a 69-year-old female who has significant past medical history of anxiety, hyperlipidemia, CKD stage III, family history of venous thromboembolism who presents to ED secondary to worsening shortness of breath x24 hours. CTA revealed fairly extensive bilateral pulmonary emboli. Elevated troponin at 0.446. Currently she is not hypoxic. IV heparin bolus/gtt initiated in ED. admit to PCU continue IV heparin obtain echocardiogram eval for R heart strain b/l venous duplex hypercoag panel, + FH of factor 5 deficiency cycle troponins consult cardiology -discussed with Dr. Edmondson and will initiate metoprolol 12.5 mg twice daily for A. fib prophylaxis 01/31 echo noted, (+) signs of right heart strain troponin level trending down tolerating Heparin drip well plan to transition to [facility] tomorrow (3) CKD (chronic kidney disease) stage 3, GFR 30-59 ml/min: baseline cr 1.1 -- stable (4) HLD (hyperlipidemia): diet controlled has had elevated total cholesterol and LDL for several years, never on statin LDL 137, outpatient ff up DVT ppx: IV heparin Disposition: if medically stable, cleared by Wood Casket Assembler, anticipate d/c home tomorrow on [facility] Admission and Anticipated Discharge Date Admission Date: January 31, 2020 Subjective ff up for acute pulmonary embolism, left leg DVT seen resting in bed, sitting up, on room air comfortable states she feels improved compared to admission denies active dyspnea has minimal substernal chest discomfort no headache, dizziness, palpitations, nausea/vomiting no bleeding no other symptoms Review of Systems Review of Systems: All systems reviewed & are unremarkable except as noted in Subjective Physical Exam Physical Exam: General- oriented x 3, not in distress, speaks in sentences with no effort or accessory muscle use Eyes- anicteric Neck- no JVD Lungs- clear BS bilaterally no rales/wheezing Heart- normal rate, regular rhythm; no murmurs Abdomen- normal bowel sounds, nondistended, soft, nontender Extremities- no pretibial edema, no calf tenderness Neuro- alert, oriented x 3; no gross focal neurologic deficits Skin- warm & dry Results & Data Results & Data ([facility]) Vital Signs (Past 12 Hours) Vital Signs Temp Pulse Pulse Resp BP Pulse Ox 02/01/20 10:02 67 02/01/20 07:13 36.4 C L 73 18 106/76 93 02/01/20 04:05 36.4 C L 73 19 110/69 94 01/31/20 23:06 36.6 C 68 18 105/56 L 96 Laboratory Results Laboratory Results - last 24 hr 01/31/20 01/31/20 02/01/20 18:33 21:11 03:42 WBC RBC Hgb Hct MCV MCH MCHC RDW Std Deviation RDW Coeff of Stefanie Plt Count MPV APTT > 139.0 H* 78.0 H* PTT Ratio > 5.0 2.8 Sodium Potassium Chloride Carbon Dioxide Anion Gap BUN Creatinine Est Cr Clr Drug Dosing Est GFR ( Amer) Est GFR (Non-Af Amer) BUN/Creatinine Ratio Glucose Calcium Magnesium Total Bilirubin AST ALT Alkaline Phosphatase Troponin I 0.955 H* Total Protein Albumin Globulin Albumin/Globulin Ratio Triglycerides Cholesterol LDL Cholesterol, Calc VLDL Cholesterol, Calc HDL Cholesterol Cholesterol/HDL Ratio 02/01/20 02/01/20 02/01/20 03:42 03:42 11:07 WBC 10.62 RBC 4.73 Hgb 14.4 Hct 43.4 MCV 91.8 MCH 30.4 MCHC 33.2 RDW Std Deviation 43.6 RDW Coeff of Stefanie 13.1 Plt Count 240 MPV 10.2 APTT 66.2 H* PTT Ratio 2.4 Sodium 138 Potassium 4.0 Chloride 109 H Carbon Dioxide 24 Anion Gap 5.0 BUN 17 Creatinine 1.02 Est Cr Clr Drug Dosing 49.3 Est GFR ( Amer) 64.1 Est GFR (Non-Af Amer) 55.3 BUN/Creatinine Ratio 16.4 Glucose 107 H Calcium 8.4 L Magnesium 2.5 H Total Bilirubin 0.7 AST 17 ALT 24 Alkaline Phosphatase 67 Troponin I Total Protein 7.4 Albumin 3.2 L Globulin 4.2 H Albumin/Globulin Ratio 0.8 L Triglycerides 74 Cholesterol 214 H LDL Cholesterol, Calc 137 VLDL Cholesterol, Calc 15 HDL Cholesterol 62 Cholesterol/HDL Ratio 4
[2020-02-01 11:47] LABS: Partial Thromboplastin Ratio 2.4
[2020-02-01 12:00] LABS: Partial Thromboplastin Time 66.2 Seconds (21.0-31.0)
--- NOTE | 2020-02-01 12:14 | Electrocardiogram Report ---
Test Reason : Blood Pressure : / mmHG Vent. Rate : 070 BPM Atrial Rate : 070 BPM P-R Int : 152 ms QRS Dur : 074 ms QT Int : 398 ms P-R-T Axes : 077 056 010 degrees QTc Int : 429 ms Sinus rhythm with occasional Premature ventricular complexes Poor R wave progression, consider anterior TN vs. lead placement vs. LVH T wave abnormality, consider anterolateral ischemia Abnormal ECG When compared with ECG of 31-JAN-2020 11:30, Premature ventricular complexes are now Present T wave inversion now evident in Anterior leads Confirmed by Juan Linton ([id number]) on 02/01/2020 12:14:12 PM Referred By: REFERRED SELF Confirmed By:Juan Linton
[2020-02-01] MEDS: HEPARIN SODIUM/DEXTROSE 25,000 UNITS/500 ML BAG IV SCH ×2 (12:47→21:20)
[2020-02-01] MEDS ORDERED: LORATADINE 10 MG TAB PO ONE (20:19)
[2020-02-01] MEDS: ZOLPIDEM TARTRATE 5 MG TAB PO PRN (23:12)
[2020-02-02 06:58] LABS: Partial Thromboplastin Ratio 2.3
[2020-02-02 06:59] LABS: Partial Thromboplastin Time 65.2 Seconds (21.0-31.0)
[2020-02-02] MEDS: METOPROLOL TARTRATE 25 MG TAB PO SCH (07:56)
[2020-02-02 09:10] LABS: Basophils # (auto) 0.04 K/uL (0-0.2); Basophils % (auto) 0.4 %; Eosinophils # (auto) 0.26 K/uL (0-0.5); Eosinophils % (auto) 2.6 %; Hematocrit (blood only) 42.6 % (37-47); Immature Granulocytes # (auto) 0.02 K/uL (0.00-0.02); Immature Granulocytes % (auto) 0.2 %; Lymphocytes # (auto) 3.09 K/uL (1.2-3.4); Lymphocytes % (auto) 31.2 %; Mean Corpuscular Hemoglobin 30.4 pg (25-34); Mean Corpuscular Hgb Conc 32.9 g/dL (32-36); Mean Corpuscular Volume 92.4 fL (80-100); Mean Platelet Volume 10.6 fL (7.4-10.4); Monocytes # (auto) 1.02 K/uL (0.11-0.59); Monocytes % (auto) 10.3 %; Neutrophils # (auto) 5.46 K/uL (1.4-6.5); Neutrophils % (auto) 55.3 %; Platelet Count 239 K/uL (130-400); RDW Coefficient of Variation 12.9 % (11.5-14.5); RDW Standard Deviation 43.4 fL (36.4-46.3); Red Blood Count 4.61 M/uL (4.2-5.4); White Blood Count 9.89 K/uL (4.8-10.8)
[2020-02-02 09:25] LABS: BUN Creatinine Ratio 11.9 (10-20); Calcium 8.9 mg/dl (8.5-10.1); Creatinine Clr Calc Pharmacy 55.4 ml/min; Est GFR (African American) 72.6; Est GFR (Non-African American) 62.6; Potassium 4.1 mmol/L (3.5-5.1)
[2020-02-02] MEDS ORDERED: APIXABAN 5 MG TABLET PO SCH (09:30)
--- NOTE | 2020-02-02 10:54 | Hospitalist Progress Note ---
Date of Service February 02, 2020 Assessment & Plan (1) Bilateral pulmonary embolism: (2) Elevated troponin: Left Lower Extremity DVT per admitting service notes: This is a 69-year-old female who has significant past medical history of anxiety, hyperlipidemia, CKD stage III, family history of venous thromboembolism who presents to ED secondary to worsening shortness of breath x24 hours. CTA revealed fairly extensive bilateral pulmonary emboli. Elevated troponin at 0.446. Currently she is not hypoxic. IV heparin bolus/gtt initiated in ED. admit to PCU continue IV heparin obtain echocardiogram eval for R heart strain b/l venous duplex hypercoag panel, + FH of factor 5 deficiency cycle troponins consult cardiology -discussed with Dr. Edmondson and will initiate metoprolol 12.5 mg twice daily for A. fib prophylaxis 02/01 echo noted, (+) signs of right heart strain troponin level trending down tolerating Heparin drip well--> transition to Eliquis twice daily Follow-up for coagulable work-up as an outpatient, referred to rheumatology Continue metoprolol 12.5 mg p.o. twice daily for A. fib prophylaxis (3) CKD (chronic kidney disease) stage 3, GFR 30-59 ml/min: baseline cr 1.1 -- stable (4) HLD (hyperlipidemia): diet controlled has had elevated total cholesterol and LDL for several years, never on statin LDL 137, outpatient ff up Disposition Discharge to home today Follow-up with PCP next week Plan of care discussed with patient and her over the phone in detail and at length All questions were answered She is understanding, agreeable, comfortable with plan of care Admission and Anticipated Discharge Date Admission Date: January 31, 2020 Subjective Follow up for acute bilateral PE, left lower extremity DVT Seen resting in bed, sitting up, comfortable, not in distress States she feels better overall Ambulating the hallways, with no shortness of breath Chest pain also resolved No dizziness, headache, palpitations No bleeding, no other symptoms States she is ready and like to be discharged today Review of Systems Review of Systems: All systems reviewed & are unremarkable except as noted in Subjective Physical Exam Physical Exam: General- oriented x 3, not in distress, speaks in sentences with no effort or accessory muscle use Eyes- anicteric Neck- no JVD Lungs- clear breath sounds bilaterally, no crackles, no wheezing Heart- normal rate, regular rhythm; no murmurs Abdomen- normal bowel sounds, nondistended, soft, nontender Extremities- no pretibial edema, no calf tenderness Neuro- alert, oriented x 3; no gross focal neurologic deficits Skin- warm & dry Results & Data Results & Data ([facility]) Vital Signs (Past 12 Hours) Vital Signs Temp Pulse Pulse Pulse Pulse Pulse Resp 02/02/20 10:10 75 77 63 02/02/20 09:16 63 02/02/20 07:45 36.4 C L 66 19 02/02/20 03:58 36.9 C 61 16 02/01/20 23:01 36.8 C 66 18 Resp Resp Resp BP Pulse Ox Pulse Ox Pulse Ox 02/02/20 10:10 16 16 16 98 93 02/02/20 09:16 02/02/20 07:45 146/73 H 94 02/02/20 03:58 123/72 95 02/01/20 23:01 135/84 96 Pulse Ox 02/02/20 10:10 94 02/02/20 09:16 02/02/20 07:45 02/02/20 03:58 02/01/20 23:01
--- NOTE | 2020-02-02 22:50 | Electrocardiogram Report ---
Test Reason : Blood Pressure : / mmHG Vent. Rate : 061 BPM Atrial Rate : 061 BPM P-R Int : 152 ms QRS Dur : 078 ms QT Int : 450 ms P-R-T Axes : 070 058 018 degrees QTc Int : 453 ms Normal sinus rhythm Possible Anterior infarct T wave abnormality, consider anterior ischemia Abnormal ECG When compared with ECG of 01-FEB-2020 06:46, Premature ventricular complexes are no longer Present T wave inversion no longer evident in Inferior leads Confirmed by Jaswant Richter ([id number]) on 02/02/2020 10:50:35 PM Referred By: REFERRED SELF Confirmed By:Jaswant Richter
[2020-02-05 14:11] LABS: Anti-Thrombin III Activity 93 % normal (80-135); Protein S Functional(Activity) 74 % (60-140)
--- NOTE | 2020-02-05 18:19 | Discharge Summary ---
Date of Service February 05, 2020 Admission HPI Per Admitting Provider This is a 69-year-old female who has significant past medical history of anxiety, hyperlipidemia, CKD stage III, family history of venous thromboembolism who presents to ED secondary to worsening shortness of breath x24 hours. Shortness of breath is associated with midsternal and right-sided chest pain. Pain is described as dull, no radiation to arm or jaw, slightly worse with deep breathing, nothing makes better, denies orthopnea or PND, has never experienced in the past. Further complains of dry cough for approximately 3 weeks. Admits to increased fatigue. When she does limited activity she gets SOB. Yesterday with ambulation she felt lightheaded like she could pass out, but resolved with rest. She denies f/c/s, sob at rest, n/v/d, change in bowel or urinary habits. She denies hemoptysis or wheezing. Father and numerous relatives + factor 5 leiden deficiency. She never got tested because she was asymptomatic. If she becamse symptomatic she would get tested. No prior hx of DVT. Former smoker. She does currently vape, but nicotine free. Denies hormone replacement therapy and no recent surgery. No current malignancy. In ED patient made hemodynamically stable. She was saturating well on room air. Lab work notable for leukocytosis 11.51k, H&H 14.7 and 44.4, platelet 246, BUN 15, creatinine 1.18, GFR 46.4, D-dimer 9210, troponin 0.446. Chest x-ray negative for acute cardiopulmonary abnormality. Chest CTA: Fairly extensive bilateral pulmonary emboli, mild cardiac enlargement. No airspace consolidation or pleural effusion. Mild diffuse peribronchial thickening suggesting a bronchitis reactive airway disease. She was started on IV heparin bolus and drip. Admission Exam Per Admitting Provider Constitutional: WD/WN, vitals as above, NAD, sitting up in bed, pleasant, conversing easily Head: Normocephalic, Atraumatic Eyes: PERRL, conjunctivae normal, anicteric sclerae ENMT: external ear and nose normal, oropharynx normal Neck: trachea midline, no thyromegaly normal visual inspection Respiratory: normal respiratory effort, lungs clear to auscultation, no wheeze, rales, rhonchi. Normal insp/exp effort, no accessory muscle use Cardiovascular: RRR, no murmur, no edema Vessels: no JVD or carotid bruit Chest: normal inspection of chest Abdomen: normal bowel sounds, soft, nontender, no hepatosplenomegaly Musculoskeletal: no cyanosis or clubbing, extremities motor strength 5/5 Skin: no rashes, warm and dry normal turgor Neurologic: PERRL, EOMI, accommodation nl, no face palsy, no dysarthria CN's II-XI intact bilaterally and moves all extremities Psychiatric: A+Ox3, euthymic affect Lymphatic: no cervical or axillary lymphadenopathy : deferred Principal Diagnosis ACUTE BILATERAL PULMONARY EMBOLISM, LEFT LOWER EXTREMITY DVT Discharge Exam General- oriented x 3, not in distress, speaks in sentences with no effort or accessory muscle use Eyes- anicteric Neck- no JVD Lungs- clear breath sounds bilaterally, no crackles, no wheezing Heart- normal rate, regular rhythm; no murmurs Abdomen- normal bowel sounds, nondistended, soft, nontender Extremities- no pretibial edema, no calf tenderness Neuro- alert, oriented x 3; no gross focal neurologic deficits Skin- warm & dry Discharge Data Allergies Allergy/AdvReac Type Severity Reaction Status Date / Time lidocaine AdvReac Severe Redness Unverified 01/31/20 11:48 and swelling of face Consultations 01/31/20 12:25 ED Decision to Admit Stat 01/31/20 15:35 Consult Case Management - Discharge Planning Routine 01/31/20 16:06 Consult Cardiology Routine 02/01/20 11:01 Consult Health Information Management Routine Ordered Studies 01/31/20 11:08 CT angio chest PE protocol Stat Thyroid: Imaged portions of the thyroid gland are normal in size and attenuation. Thoracic aorta: The thoracic aorta is normal in caliber and demonstrates standard 3-vessel arch anatomy. No dissection is seen. Pulmonary vasculature: The pulmonary trunk is normal in caliber. There is pulmonary embolus within the right lower lobe pulmonary artery. This extends peripherally into segmental and subsegmental branches. Segmental and subsegmental pulmonary emboli are also seen within branches of the right upper and right lower lobe pulmonary arteries. There is thrombus within the distal left main pulmonary artery. This extends into the left upper and left lower lobar pulmonary arteries involving segmental and subsegmental branches. Heart: The heart is mildly enlarged and without pericardial effusion. Lungs and pleural spaces: There is no airspace consolidation or pleural effusion. Atelectasis is noted at the lung bases. The trachea and central airways are clear. Mild diffuse peribronchial thickening is observed. Mediastinum: There is no mediastinal lymphadenopathy. Lucita: Clear. Axillae: There is no axillary lymphadenopathy. Upper abdomen: There is a small hiatal hernia. An 11 mm complex/hyperdense cyst arises from the upper pole of left kidney. Skeletal structures: The skeletal structures are osteopenic. No lytic or blastic bony lesions are seen. IMPRESSION: 1. Fairly extensive bilateral pulmonary emboli as above. 2. Mild cardiac enlargement. 3. There is no airspace consolidation or pleural effusion. 4. Mild diffuse peribronchial thickening suggests bronchitis/reactive airway disease. Clinical correlation will be required. 01/31/20 12:51 US venous doppler LE BI Stat FINDINGS: Occlusive deep venous thrombosis noted within the distal popliteal vein extending into one of the paired posterior tibial veins. Otherwise, there is normal compressibility, flow, and augmentation within the remaining bilateral lower extremity deep venous structures. Right-sided Schrader's cyst, 3.0 x 1.1 x 1.4 cm. IMPRESSION: 1. Occlusive deep venous thrombus of the left lower extremity as above. 2. No sonographic evidence of right lower extremity deep venous thrombosis. Hospital Course (1) Bilateral pulmonary embolism: (2) Elevated troponin: Acute bilateral pulmonary embolism with right heart strain Left Lower Extremity DVT per admitting service notes: This is a 69-year-old female who has significant past medical history of anxiety, hyperlipidemia, CKD stage III, family history of venous thromboembolism who presents to ED secondary to worsening shortness of breath x24 hours. CT Angio: revealed fairly extensive bilateral pulmonary emboli. Elevated troponin at 0.446. Lower extremity ultrasound: Occlusive deep venous thrombosis noted within the distal popliteal vein extending into one of the paired posterior tibial veins BP stable, not hypoxic Echo noted, (+) signs of right heart strain troponin level trended down Fiber Optic Assembly Worker Dr. Edmondson consulted, recommended metoprolol 12.5 mg p.o. twice daily tolerated Heparin drip well--> transitioned to Eliquis 10 mg twice daily x7 days, 5 mg twice daily thereafter Follow-up hypercoagulable work-up results, refer to Hematology given family history of Factor V Leiden Deficiency Continue metoprolol 12.5 mg p.o. twice daily for A. fib prophylaxis (3) CKD (chronic kidney disease) stage 3, GFR 30-59 ml/min: baseline cr 1.1 -- stable (4) HLD (hyperlipidemia): diet controlled has had elevated total cholesterol and LDL for several years, never on statin LDL 137, outpatient ff up (5) Abnormal finding on CT scan: Upper abdomen: There is a small hiatal hernia. An 11 mm complex/hyperdense cyst arises from the upper pole of left kidney. -- further evaluation and management as outpatient Disposition Discharge to home Follow-up with PCP next week Plan of care discussed with patient and her over the phone in detail and at length All questions were answered They areunderstanding, agreeable, comfortable with plan of care Total Time Total Time Spent Total Time Spent (In Minutes): > 30 minutes Discharge Plan Discharge Items Patient Disposition: Home - Self-Care Reason For Visit: PULMONARY EMBOLISM Discharge Diagnosis: ACUTE BILATERAL PULMONARY EMBOLISM LEFT LOWER LEG DEEP VENOUS THROMBOSIS Activity: As commented below Lifting: Wait until after follow-up appointment Exercise/Sports: Wait until after follow-up appointment Driving/Machine Use: No driving until re-evaluated by Primary Care Physician Non-emergency contact: Primary Care Provider Call non-emergency contact if: you have any medication questions, your symptoms worsen, your pain is not controlled, your pain is worsening, your pain is unusual for you, your pain is concerning for you and you have a fever Follow-up/Referrals: Mikel Edmondson DO [Fiber Optic Assembly Worker] - 03/02/20 1:30 pm (Please follow up with Dr. Edmondson on Thursday03/02/2020 at 1:30 pm. Please arrive to the office 15 minutes early for your appointment. If you are unable to keep this appointment, please call the office to reschedule at [phone]. ) Toyin Orta DO [Primary Care Provider] - (Date & Time 02/06/2020 2:00 PM Provider Priya Walker MD [facility] ) Diet: Heart Healthy Addtl Attending Provider Instructions: Please review your new medication list and follow instructions carefully. Your new medications include: 1. Eliquis- blood thinner for treatment of pulmonary embolism and DVT - take 2 tabs (10 mg) twice a day for 7 days, then 1 tab (5 mg) twice a day 2. Metoprolol- for treatment of heart strain caused by pulmonary embolism If you sustain any head trauma, please proceed to the ER immediately for evaluation, even if you do not have any symptoms. If you have any signs of bleeding, please inform your primary care physician immediately. Call primary care physician or return to the ER immediately if with recurrence or worsening of symptoms, Including shortness of breath, chest pain, dizziness or lightheadedness, increasing leg pain or swelling. Follow-up with a primary care physician in [address] Shira Gonzales [facility] on Thursday, February 06, 2020 at 2 PM (Dr. Orta is not available next week). Follow-up with Janet assignment officer Dr. Edmondson in 1 month. Please contact his office to set up an appointment. His contact information is noted above. You will also need to be referred to a production line welder for further evaluation. Your primary care physician can assist you with the referral. Pending Studies at Discharge: Yes Studies:: Hypercoagulable work-up (results of testing done to determine underlying genetic predisposition to blood clots) Stand-Alone Forms: My [facility], Smoking Cessation Medications and DC Order Prescriptions: New Eliquis 5 mg tablet 5 mg PO UD Qty: 90 RF: 2 metoprolol tartrate 25 mg Tablet 12.5 mg PO BID Qty: 30 RF: 2 Continued Fabricio-E 400 mg Tablet 400 mg PO HS RF: 0 Cbd Oil 50mg/Ml 50 mg sublingual HS RF: 0 Discharge Orders: Discharge Order (Routine); Ordered 02/02/20 Ordered By: Rene Amaya/Other Patient Handouts: Apixaban oral tablets Admission Data Admit Date/Time: 01/31/20 12:57 Attending Provider: Rene Latham Admit Provider: Samantha Huitron Primary Care Provider: Toyin Orta Other Providers: Samantha Huitron ; Mikel Edmondson Other Interventions: Discharge Summary Assessment (RN) Last Done: 02/02/20 11:18
--- NOTE | 2020-02-15 06:49 | Coding Query ---
CODING QUERY To promote full compliance with coding requirements relating to patient care, provider participation is requested in all cases of precision agronomist uncertainty. Please assist us with the question(s) below: Coding Question(s): Per 02/01/20 Progress Note, patient has Type II MD due to Demand Ischemia. This is not documented on Discharge and it was not Ruled Out. Please clarify below: ( ) Patient has Type II MD due to Demand Ischemia ( ) Patient has Demand Ischemia only ( ) Type II MD due to Demand Ischemia Ruled Out xOther Please Explain: Possible Demand Ischemia secondary to Right Heart Strain secondary to Pulmonary Emboism Thank you Omar Ricardo Principal Diagnosis: "that condition established after study, to be chiefly responsible for occasioning the admission of the patient to the hospital for care." Co-Existing Principal Diagnosis: "when two or more diagnoses equally meet the criteria for principal diagnosis as determined by the circumstances of admission, diagnostic work up, and/or therapy provided, and the Alphabetic Index, Tabular List, or another coding guideline does not provide sequencing direction, any one of the diagnoses may be sequenced first." "When the physician has documented what appears to be a current diagnosis in the body of the record, but has not included the diagnosis in the final diagnostic statement, the physician should be asked whether the diagnosis should be added." (Source Coding [facility] 2 QTR90. p3-4) IRA
== END 2020-02-02 12:14 | disposition home or self-care (01) | DRG 299 ==
LOC: EDBD → ED 09:05 → 2S 12:57 → SUATTDRO 12:57 → 2S 15:00